=== PATIENT | female | born 1955 | race Caucasian/White ===

== ENCOUNTER → 2021-02-20 | Outpatient (CLI) | payer MEDICARE, OTHER ==
--- NOTE | 2021-02-20 14:14 | REP ---
INDICATION: SOB, CHEST PAIN, PALPITATIONS CHEST XRAY 1ST. COMPARISON: Comparison chest x-ray February 20, 2021. TECHNIQUE: 1.0 mCi of technetium 99m DTPA aerosol is utilized for the ventilation study and is followed by a 5.5 mCi dose of intravenous technetium 99m MAA for the perfusion study. A sequence of 8 planar images are acquired for each portion of the study. FINDINGS: There is mild central bronchial and some esophageal tracer visualized on the ventilation study. Otherwise homogeneous tracer deposition is seen in the lung parenchyma on the ventilation study. The perfusion exam also shows homogeneous distribution of tracer. No perfusion defect is visible. IMPRESSION: Negative perfusion scan. No scintigraphic evidence of pulmonary embolus. <Electronically signed by Shawn Nieves > 02/20/21 [id number]
--- NOTE | 2021-02-20 15:06 | REP ---
INDICATION: SOB, CHEST PAIN, PALPITATIONS CHEST XR FIRST COMPARISON: None. TECHNIQUE: PA/Lateral FINDINGS: Lungs: There is no evidence of acute infiltrate. There is mild linear bibasilar fibro atelectatic change. Heart: Normal in size. Mediastinum: Mediastinal silhouette unremarkable. Pleural angles: Unremarkable.. Bones and soft tissues: There are mild degenerative changes of the spine. IMPRESSION: No acute pulmonary disease. <Electronically signed by Dexter Bishop > 02/20/21 [id number]
== END ==
LOC: M RAD 12:57
PROVIDERS: ATTEND Nurse Practitioner Family
DX: R06.02 Shortness of breath (principal); R07.1 Chest pain on breathing; R00.2 Palpitations
CPT/HCPCS: 71046; 78582; A9540; A9567

== ENCOUNTER 2024-02-12 10:12 | Day surgery (SDC) | payer MEDICARE, OTHER ==
[~2024-02-12] VITALS: Ht 157.5 cm; Wt 81.8 kg
[~2024-02-12 10:12] MED LIST: ATOR80TA59 PO; BISO5TAB14 PO; CLOP75TA2 PO; ECOT81TA5 PO; EZET10TA21 PO; LEVO75TA4 PO; LOSA50TA28 PO; NS 1,000 ML IV ONE; SERT50TA29 PO; VITA200032 PO
[2024-02-12] MEDS ORDERED: LIDOCAINE 2% 100MG/5ML SDV (FOR ANES.) As Ordered ONE (11:03)
[2024-02-12] MEDS ORDERED: propofoL 200 MG/20 ML VIAL As Ordered ONE (11:03)
[2024-02-12 12:58] VITALS: BP 169/74; O2SAT 96
== END 2024-02-12 13:05 | disposition home or self-care (01) ==
LOC: M OPP 10:12
PROVIDERS: ATTEND Surgery
DX: K63.5 Polyp of colon (principal); K64.4 Residual hemorrhoidal skin tags; K64.8 Other hemorrhoids; K63.89 Other specified diseases of intestine; K57.30 Diverticulosis of large intestine without perforation or abscess without bleeding; R19.5 Other fecal abnormalities; I25.119 Atherosclerotic heart disease of native coronary artery with unspecified angina pectoris; F17.200 Nicotine dependence, unspecified, uncomplicated; Z79.02 Long term (current) use of antithrombotics/antiplatelets; Z79.82 Long term (current) use of aspirin; Z79.890 Hormone replacement therapy; Z79.83 Long term (current) use of bisphosphonates; Z88.5 Allergy status to narcotic agent; Z88.8 Allergy status to other drugs, medicaments and biological substances